=== PATIENT | male | born 1980 | race Asian ===

== ENCOUNTER 2020-12-25 07:17 | Emergency (ER) | payer OTHER ==
[~2020-12-25] VITALS: Ht 167.6 cm; Wt 75.7 kg
[2020-12-25 07:50] VITALS: BP 143/99
== END 2020-12-25 10:38 | disposition home or self-care (01) ==
LOC: ER 07:17
DX: Z20.822 Contact with and (suspected) exposure to COVID-19 (principal); F41.9 Anxiety disorder, unspecified
CPT/HCPCS: 36415; 71045; 87426